=== PATIENT | male | born 1995 | race Caucasian/White ===

== ENCOUNTER 2017-12-30 23:56 | Emergency (ER) | payer SELFPAY ==
--- NOTE | 2017-12-31 01:05 | EDM.PDOC ---
ED HPI GENERAL MEDICAL PROBLEM - General Chief Complaint: ENT Problem Stated Complaint: TOOTH PAIN Time Seen by Provider: 12/31/17 00:40 Source of Information: Reports: Patient History Limitations: Reports: No Limitations - History of Present Illness INITIAL COMMENTS - FREE TEXT/NARRATIVE: 22 yo male with L mandibular dental pain. Pain began a few days ago, but has gotten markedly worse today. Pain does wax and wane. No fever or facial swelling so far. Has a pHx of poor dentition. Onset: Gradual Duration: Day(s):, Getting Worse Location: Reports: Face (L mandible tooth) Quality: Reports: Ache Severity: Moderate Improves with: Reports: None Worsens with: Reports: Other (time) Context: Reports: Other (poor oral hygiene) Associated Symptoms: Reports: No Other Symptoms Treatments REGULATORY AGENCY DIRECTOR: Reports: Other (see below) (none) Left Lower tooth Pain Score (Numeric/FACES): 8 - Related Data Allergies Allergy/AdvReac Type Severity Reaction Status Date / Time No Known Allergies Allergy Verified 12/31/17 00:20 Home Meds: Home Meds NK [No Known Home Meds] 08/14/14 [History] Past Medical History Musculoskeletal History: Reports: Arthritis, Osteoarthritis Psychiatric History: Reports: Bipolar - Infectious Disease History Infectious Disease History: Reports: Chicken Pox - Past Surgical History HEENT Surgical History: Reports: Adenoidectomy, Tonsillectomy Social & Family History - Tobacco Use Smoking Status *Q: Current Every Day Smoker Years of Tobacco use: 6 Packs/Tins Daily: 0.5 Second Hand Smoke Exposure: Yes - Caffeine Use Caffeine Use: Reports: Coffee, Soda - Alcohol Use Days Per Week of Alcohol Use: 0 - Recreational Drug Use Recreational Drug Use: No ED ROS ENT - Review of Systems Review Of Systems: See Below Constitutional: Reports: No Symptoms HEENT: Reports: Dental Pain Respiratory: Reports: No Symptoms Cardiovascular: Reports: No Symptoms Skin: Reports: No Symptoms Neurological: Reports: No Symptoms ED EXAM, ENT - Physical Exam Exam: See Below Exam Limited By: No Limitations General Appearance: Alert, WD/WN, No Apparent Distress Eye Exam: Bilateral Eye: Normal Inspection Ears: Normal External Exam, Normal Canal, Hearing Grossly Normal, Normal TMs Nose: Normal Inspection, Normal Mucousa, No Blood Mouth/Throat: Normal Inspection, Normal Lips, Normal Oropharynx, Other (L mandibular molar is has the lateral half broken off. The rest of the tooth has severe decay. No facial swelling. No cervical adenopathy. ) Head: Atraumatic, Normocephalic Neck: Normal Inspection, Supple, Non-Tender. No: Lymphadenopathy (R), Lymphadenopathy (L) Psychiatric: Normal Affect, Normal Mood Skin: Warm, Dry, Intact, Normal Color, No Rash Lymphatic: No Adenopathy Course - Vital Signs Last Recorded V/S: Last Vital Signs Temp 36.8 C 12/31/17 00:18 Pulse 82 12/31/17 00:18 Resp 16 12/31/17 00:18 BP 153/85 H 12/31/17 00:18 Pulse Ox 97 12/31/17 00:18 Departure - Departure Time of Disposition: 00:45 Disposition: Home, Self-Care 01 Condition: Good Clinical Impression: Dental caries, Dental abscess Clinical Impression: (Ruled Out): Fracture of tooth - Discharge Information Instructions: Dental Abscess, [id number] Referrals: PCP,None [Primary Care Provider] - Forms: ED Department Discharge Additional Instructions: Take penicillin as directed. Use ibuprofen and/or [place] as needed for pain relief. See your dentist on Monday.
== END 2017-12-31 00:49 | disposition home or self-care (01) ==
LOC: JP.ED 23:56
DX: K02.9 Dental caries, unspecified (principal); K04.7 Periapical abscess without sinus; F17.210 Nicotine dependence, cigarettes, uncomplicated; M19.90 Unspecified osteoarthritis, unspecified site
CPT/HCPCS: 99283

== ENCOUNTER 2018-01-15 05:50 | Emergency (ER) | payer SELFPAY ==
[2018-01-15] MEDS ORDERED: Ketorolac 60 MG/2 ML SDV IM ONE (06:32)
[2018-01-15] MEDS ORDERED: Acetaminophen/HYDROcodone 325-5 MG Tab PO ONE (06:37)
--- NOTE | 2018-01-15 06:37 | EDM.PDOC ---
ED HPI GENERAL MEDICAL PROBLEM - General Chief Complaint: ENT Problem Stated Complaint: TOOTH PAIN Time Seen by Provider: 01/15/18 06:33 Source of Information: Reports: Patient History Limitations: Reports: No Limitations - History of Present Illness INITIAL COMMENTS - FREE TEXT/NARRATIVE: pt is having severe tooth pain in the left lower molar area. Onset: Other ( last 2 days . Pt has not gotten any rest. ) Duration: Hour(s): Location: Reports: Face Associated Symptoms: Reports: No Other Symptoms left side dental pain Pain Score (Numeric/FACES): 8 - Related Data Allergies Allergy/AdvReac Type Severity Reaction Status Date / Time No Known Allergies Allergy Verified 01/15/18 06:09 Home Meds: Home Meds NK [No Known Home Meds] 08/14/14 [History] Past Medical History Musculoskeletal History: Reports: Arthritis, Osteoarthritis Psychiatric History: Reports: Bipolar - Infectious Disease History Infectious Disease History: Reports: Chicken Pox - Past Surgical History HEENT Surgical History: Reports: Adenoidectomy, Tonsillectomy Social & Family History - Tobacco Use Smoking Status *Q: Unknown Ever Smoked Years of Tobacco use: 6 Packs/Tins Daily: 0.5 Second Hand Smoke Exposure: Yes - Caffeine Use Caffeine Use: Reports: Coffee, Soda - Alcohol Use Days Per Week of Alcohol Use: 0 - Recreational Drug Use Recreational Drug Use: No ED ROS ENT - Review of Systems Review Of Systems: See Below Constitutional: Reports: No Symptoms HEENT: Reports: Dental Pain Respiratory: Reports: No Symptoms Cardiovascular: Reports: No Symptoms Endocrine: Reports: No Symptoms GI/Abdominal: Reports: No Symptoms : Reports: No Symptoms Musculoskeletal: Reports: No Symptoms ED EXAM, ENT - Physical Exam Exam: See Below Text/Narrative:: pt is having severe pain in the left lower molar area. He has [employer] insurance pending. Exam Limited By: No Limitations General Appearance: Alert, Moderate Distress Ears: Normal TMs Nose: Normal Inspection Mouth/Throat: Dental Pain, Dental Tenderness, Other (pt has very carious teeth) Head: Atraumatic Neck: Normal Inspection Respiratory/Chest: No Respiratory Distress Course - Vital Signs Last Recorded V/S: Last Vital Signs Temp 36.4 C 01/15/18 06:04 Pulse 83 01/15/18 06:04 Resp 14 01/15/18 06:04 BP 151/96 H 01/15/18 06:04 Pulse Ox 99 01/15/18 06:04 - Orders/Labs/Meds Orders: Active Orders 24 hr Category Date Time Status Acetaminophen/HYDROcodone [[place] 325-5 MG] Med 01/15/18 06:37 Once 1 tab PO ONETIME ONE Medication Orders Hydrocodone Bitart/Acetaminophen ([place] 325-5 Mg) 1 tab PO ONETIME ONE Stop: 01/15/18 06:38 Meds: Medications Generic Name Dose Route Start Last Admin Trade Name Freq PRN Reason Stop Dose Admin Hydrocodone Bitart/Acetaminophen 1 tab 01/15/18 06:37 [place] 325-5 Mg PO 01/15/18 06:38 ONETIME ONE Discontinued Medications Generic Name Dose Route Start Last Admin Trade Name Freq PRN Reason Stop Dose Admin Ketorolac Tromethamine 60 mg 01/15/18 06:32 Toradol IM 01/15/18 06:33 ONETIME ONE - Re-Assessments/Exams Free Text/Narrative Re-Assessment/Exam: 01/15/18 06:36 pt wa given torodol 60mg im. Departure - Departure Time of Disposition: 06:37 Disposition: Home, Self-Care 01 Condition: Fair Clinical Impression: Pain due to dental caries - Discharge Information Referrals: PCP,None [Primary Care Provider] - Forms: ED Department Discharge Care Plan Goals: amoxicillin 500mg tid, tylenol 3 1 tab q6h prn for pain dental referal. , motrin 600mg tid as needed for pain. - My Orders Last 24 Hours: My Active Orders 01/15/18 06:37 Acetaminophen/HYDROcodone [[place] 325-5 MG] 1 tab PO ONETIME ONE - Assessment/Plan Last 24 Hours: My Active Orders 01/15/18 06:37 Acetaminophen/HYDROcodone [[place] 325-5 MG] 1 tab PO ONETIME ONE
== END 2018-01-15 06:52 | disposition home or self-care (01) ==
LOC: JP.ED 05:50
DX: K02.9 Dental caries, unspecified (principal)
CPT/HCPCS: 96372; 99283; A9270; J1885

== ENCOUNTER 2019-01-27 18:57 | Emergency (ER) | payer MEDICAID ==
--- NOTE | 2019-01-27 19:32 | EDM.PDOC ---
ED HPI GENERAL MEDICAL PROBLEM - General Chief Complaint: ENT Problem Stated Complaint: ABSCESS IN MOUTH Time Seen by Provider: 01/27/19 19:15 Source of Information: Reports: Patient, Old Records, RN History Limitations: Reports: No Limitations - History of Present Illness INITIAL COMMENTS - FREE TEXT/NARRATIVE: 23 yo male was seen in the clinic a couple days ago for an oral infection associated with very bad dentition. He was started on Augmentin and asked to follow up with dentistry. Initially he was improving, now he is getting worse again. Has an abscess visible to the area between his upper lip and the area where his upper central incisors should be. No fever. Dentist appt is several days away yet. Onset: Gradual Duration: Day(s):, Getting Worse Location: Reports: Face (mouth) Quality: Reports: Pressure Severity: Moderate Improves with: Reports: None Worsens with: Reports: Other (time) Context: Reports: Other (see HPI) Associated Symptoms: Reports: No Other Symptoms Treatments KEY ATTENDANT: Reports: Other (see below) (Augmentin) - Related Data Allergies Allergy/AdvReac Type Severity Reaction Status Date / Time No Known Allergies Allergy Verified 01/27/19 19:08 Home Meds: Home Meds Amoxicillin/Potassium Clav [Amox-Clav 875-125 mg Tablet] 1 tab PO BID 01/27/19 [ History] Clindamycin HCl [Cleocin HCl] 300 mg PO TID #30 capsule 01/27/19 [Rx] Past Medical History Musculoskeletal History: Reports: Arthritis, Osteoarthritis Psychiatric History: Reports: Bipolar Endocrine/Metabolic History: Reports: Hypothyroidism - Infectious Disease History Infectious Disease History: Reports: Chicken Pox - Past Surgical History HEENT Surgical History: Reports: Adenoidectomy, Tonsillectomy Social & Family History - Tobacco Use Smoking Status *Q: Current Every Day Smoker Years of Tobacco use: 7 Packs/Tins Daily: 0.5 - Caffeine Use Caffeine Use: Reports: Coffee, Soda - Recreational Drug Use Recreational Drug Use: No ED ROS ENT - Review of Systems Review Of Systems: See Below Constitutional: Reports: No Symptoms HEENT: Reports: Dental Pain Respiratory: Reports: No Symptoms Cardiovascular: Reports: No Symptoms Skin: Reports: No Symptoms Neurological: Reports: No Symptoms ED EXAM, ENT - Physical Exam Exam: See Below Exam Limited By: No Limitations General Appearance: Alert, WD/WN, No Apparent Distress Eye Exam: Bilateral Eye: Normal Inspection Ears: Normal External Exam, Normal Canal, Hearing Grossly Normal Nose: Normal Inspection, No Blood Mouth/Throat: Normal Inspection, Normal Lips, Normal Oropharynx, Gum Swelling ( pea size abscess of the upper/anterior gum area), Other (most of his teeth are rotted to the gum line.). No: Normal Gums, Hoarse Voice, Lip Swelling Head: Atraumatic, Normocephalic Respiratory/Chest: Lungs Clear Cardiovascular: Regular Rate, Rhythm Neurological: Alert, Oriented, CN II-XII Intact, Normal Cognition, No Motor/ Sensory Deficits Psychiatric: Normal Affect, Normal Mood Skin: Warm, Dry, Intact, Normal Color, No Rash Course - Vital Signs Text/Narrative:: Drained about 0.5 ml of pus from this abscess decompressing it. Sent specimen for culture. Last Recorded V/S: Last Vital Signs Temp 35.7 C 01/27/19 19:10 Pulse 87 01/27/19 19:10 Resp 19 01/27/19 19:10 BP 141/95 H 01/27/19 19:10 Pulse Ox 99 01/27/19 19:10 Departure - Departure Time of Disposition: 19:37 Disposition: Home, Self-Care 01 Condition: Fair Clinical Impression: Oral infection - Discharge Information *PRESCRIPTION DRUG MONITORING PROGRAM REVIEWED*: No *COPY OF PRESCRIPTION DRUG MONITORING REPORT IN PATIENT [facility]: No Prescriptions: Clindamycin HCl [Cleocin HCl] 300 mg PO TID #30 capsule Referrals: PCP,None [Primary Care Provider] - Additional Instructions: Continue Augmentin until you are able to fill the Rx for clindamycin tomorrow, then switch to this new antibiotic. See your dentist RAJ. Take ibuprofen and/ or acetaminophen as needed for pain relief. You may also take your tramadol as needed. See you family doctor in the interim if you have concerns before getting to see your dentist.
[2019-01-27] MEDS ORDERED: Clindamycin HCl 150 MG Cap PO ONE (19:40)
== END 2019-01-27 19:50 | disposition home or self-care (01) ==
LOC: JP.ED 18:57
DX: K04.7 Periapical abscess without sinus (principal); F17.200 Nicotine dependence, unspecified, uncomplicated
CPT/HCPCS: 41800; 87075; 99282; 99283; A9270